=== PATIENT | female | born 1990 | race Caucasian/White ===

== ENCOUNTER 2018-01-27 15:43 | Outpatient (CLI) | payer BC ==
[~2018-01-27 15:43] MED LIST: ASPI-808 PO; CEFD300C3 PO; NAPR-1071 PO
[2018-01-27 16:22] VITALS: BP 128/86
[2018-01-27 16:50] VITALS: BP 128/80
== END 2018-01-27 16:53 | disposition home or self-care (01) ==
LOC: WSo 15:43
PROVIDERS: ATTEND Obstetrics & Gynecology
DX: Z31.82 Encounter for Rh incompatibility status (principal)
CPT/HCPCS: 96372

== ENCOUNTER → 2018-03-30 | Outpatient (CLI) | payer BC ==
[~2018-03-30] MED LIST changes: +DOCU100C37 PO; +ENOX40DI8 SC; +OXYC1TAB12 PO
== END ==
LOC: LABNPT 17:01
PROVIDERS: ATTEND Obstetrics & Gynecology
DX: O14.02 Mild to moderate pre-eclampsia, second trimester (principal)
CPT/HCPCS: 82570; 84156

== ENCOUNTER 2018-04-03 07:15 | Inpatient (IN) | payer BC | END 2018-04-06 13:00 | disposition home or self-care (01) | LOC: LDRP 07:15 ==

== ENCOUNTER 2018-04-24 10:00 | Outpatient (RCR) | payer BC | END 2018-07-23 | disposition home or self-care (01) | LOC: ONC 10:00 | PROVIDERS: ATTEND Internal Medicine Hematology & Oncology | DX: Z86.718 Personal history of other venous thrombosis and embolism (principal); Z79.01 Long term (current) use of anticoagulants | CPT/HCPCS: 99213 ==

== ENCOUNTER 2019-08-12 11:38 | Emergency (ER) | payer BC ==
[~2019-08-12] VITALS: Ht 165 cm; Wt 166.6 kg
--- NOTE | 2019-08-12 12:15 | ED General ---
General Chief Complaint: General Problems/Pain Stated Complaint: L SIDE ABD SWELLING/REDNESS Nursing Triage Note: Pt amb to rm 7 with complaint of blood clot on abd. states has hx of blood clots and takes aspirin daily Nursing Sepsis Screen: No Definite Risk Source of Information: Patient Exam Limitations: No Limitations History of Present Illness Date Seen by Provider: August 12, 2019 Time Seen by Provider: 12:11 Initial Comments To ER with a swollen slightly erythematous tender area to the anterior lateral aspect of the abdomen that started about 2 days ago. She states that it began in a small quarter-sized area and has extended inferiorly about 8 inches and has become more swollen. 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 She has a history of superficial thrombophlebitis of the lower leg as well as bilateral deep vein thrombosis, inferior vena cava filter placement she is not on anticoagulation. The initial clots were discovered following oral anticoagulation use. Timing/Duration: 1-2 Days Severity: Moderate Associated Systoms: No Chest Pain, No Shortness of Air Allergies and Home Medications Allergies Coded Allergies: No Known Drug Allergies (Verified , 11/27/08) Home Medications Apixaban 2.5 Mg Tablet, 2.5 MG PO BID Prescribed by: NALLELY ROSAS on 08/12/19 1224 Aspirin 325 Mg Tablet, 325 MG PO DAILY, (Reported) Cefdinir 300 Mg Capsule, 300 MG PO BID Prescribed by: FRAN GROSS on 01/27/16 1656 Cephalexin 500 Mg Capsule, 500 MG PO QID Prescribed by: NALLELY ROSAS on 08/12/19 1224 Docusate Sodium 100 Mg Capsule, 100 MG PO BID Prescribed by: VIPUL ESQUIVEL on 04/04/18820 Enoxaparin Sodium 40 Mg/0.4 Ml Syringe, 40 MG SC Q12HR Prescribed by: VIPUL ESQUIVEL on 04/04/18820 Oxycodone HCl/Acetaminophen 1 Each Tablet, 1 TAB PO Q4HR PRN for PAIN-MODERATE TO SEVERE Prescribed by: VIPUL ESQUIVEL on 04/04/18820 Patient Home Medication List Home Medication List Reviewed: Yes Review of Systems Review of Systems Constitutional: see HPI; No chills, No fever EENTM: see HPI Respiratory: see HPI; No cough, No short of breath Cardiovascular: no symptoms reported Genitourinary: no symptoms reported Musculoskeletal: see HPI Skin: see HPI Psychiatric/Neurological: No Symptoms Reported Hematologic/Lymphatic: No Symptoms Reported Immunological/Allergic: no symptoms reported Past Owvsuvz-Ibzvbf-Kmejka Hx Patient Social History Alcohol Use: Denies Use Recreational Drug Use: No Smoking Status: Never a Smoker Recent Foreign Travel: No Contact w/Someone Who Travel: No Recent Infectious Disease Expo: No Recent Hopitalizations: No Immunizations Up To Date Tetanus Booster (TDap): Unknown PED Vaccines UTD: Yes Date of Influenza Vaccine: Feb 16, 2018 Seasonal Allergies Seasonal Allergies: No Past Medical History Surgeries: Yes (WISDOM TEETH REMOVAL, VENA CAVA FILTER) Respiratory: No Cardiac: Yes Deep Vein Thrombosis Neurological: No Reproductive Disorders: No 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 No Pertinent Family Hx Physical Exam Vital Signs Vital Signs - First Documented 08/12/19 11:58 Pulse 88 Resp 17 B/P (MAP) 161/92 (115) Pulse Ox 97 O2 Delivery Room Air Capillary Refill : Less Than 3 Seconds Height, Weight, BMI Height: 5'5.00" Weight: 354lbs. 0.0oz. 160.660303he; 61.00 BMI Method:Stated General Appearance: No Apparent Distress, WD/WN Eyes: Bilateral Eye Normal Inspection, Bilateral Eye PERRL, Bilateral Eye EOMI Neck: Full Range of Motion, Normal Inspection Respiratory: No Accessory Muscle Use, No Respiratory Distress Gastrointestinal: Non Tender, Soft Extremity: Normal Capillary Refill, Normal Inspection Neurologic/Psychiatric: Alert, Oriented x3 Skin: Normal Color, Warm/Dry, Other (there is an area of thrombophlebitis along the lateral aspect of the abdomen that measures about 3 cm wide, the skin is erythematous, slightly indurated, about 15 cm long.) Progress/Results/Core Measures Suspected Sepsis Recent Fever Within 48 Hours: No Infection Criteria Present: None New/Unexplained Altered Menta: No Sepsis Screen: No Definite Risk SIRS Temperature: Pulse: 88 Respiratory Rate: 17 Blood Pressure 161 /92 Mean: 115 Results/Orders My Orders Orders - NALLELY ROSAS APRN Cbc With Automated Diff (08/12/19 12:08) Hs C Reactive Protein (08/12/19 12:08) Fibrin Degradation Products (08/12/19 12:08) Basic Metabolic Panel (08/12/19 12:08) Vital Signs/I&O 08/12/19 11:58 Pulse 88 Resp 17 B/P (MAP) 161/92 (115) Pulse Ox 97 O2 Delivery Room Air Capillary Refill : Less Than 3 Seconds Blood Pressure Mean: 115 Departure Communication (Admissions) She states that she was formerly on warfarin but never took it consistently as Dr. Patrick wanted her to so she just stopped it. She states she she would like to start an anticoagulant but not warfarin. I spoke with Dr. Manuel On-call for hematology and agrees with starting oral anticoagulants, she'll need to follow up with Dr. Patrick tomorrow. Because this is not deep venous thrombosis but she needs to reduce the risk of recurrent DVT or PE given her history, I will use Eliquis 2.5 mg by mouth twice a day. I did discuss with her the risk of anticoagulant use. Impression Primary Impression: Thrombophlebitis of the abdomen wall Disposition: HOME, SELF-CARE Condition: Stable Departure-Patient Inst. Decision time for Depature: 12:15 Referrals: NO,LOCAL PHYSICIAN (PCP/Family) Primary Care Physician Patient Instructions: NO INSTRUCTIONS GIVEN Add. Discharge Instructions: 1. Start oral anticoagulation as directed. Call Dr. Patrick tomorrow to make an appointment to be seen for follow-up. All discharge instructions reviewed with patient and/or family. Voiced understanding. Scripts Apixaban (Eliquis) 2.5 Mg Tablet 2.5 MG PO BID, #60 TAB Prov: NALLELY ROSAS APRN 08/12/19 Cephalexin (Keflex) 500 Mg Capsule 500 MG PO QID, #28 CAP Prov: NALLELY ROSAS APRN 08/12/19 Images Torso/Trunk 1 - Swelling, Tenderness Copy Copies To 1: JESSIE MORELOS; AMAIRANI MANUEL MD, PETER J APRN August 12, 2019 12:15
[2019-08-12] MEDS ORDERED: APIX2.5T PO (12:24)
[2019-08-12] MEDS ORDERED: CEPH-507 PO (12:24)
[2019-08-12 12:43] LABS: BASOPHILS % (AUTO) 0 % (0-10); EOSINOPHILS # (AUTO) 0.1 10^3/uL (0.0-0.3); EOSINOPHILS % (AUTO) 2 % (0-10); HEMATOCRIT 36 % (35-52); LYMPHOCYTES # (AUTO) 1.3 X 10^3 (1.0-4.0); LYMPHOCYTES % (AUTO) 18 % (12-44); MEAN CORPUSCULAR HEMOGLOBIN 30 PG (25-34); MEAN CORPUSCULAR HGB CONC 33 G/DL (32-36); MEAN CORPUSCULAR VOLUME 91 FL (80-99); MEAN PLATELET VOLUME 8.8 FL (7.4-10.4); MONOCYTES # (AUTO) 0.8 X 10^3 (0.0-1.0); MONOCYTES % (AUTO) 12 % (0-12); NEUTROPHILS # (AUTO) 4.7 X 10^3 (1.8-7.8); NEUTROPHILS % (AUTO) 67 % (42-75); PLATELET COUNT 264 10^3/uL (130-400); RED CELL DISTRIBUTION WIDTH 13.5 % (10.0-14.5); WHITE BLOOD COUNT 6.9 10^3/uL (4.3-11.0)
[2019-08-12 13:01] LABS: CHLORIDE 105 MMOL/L (98-107); POTASSIUM 4.1 MMOL/L (3.6-5.0); SODIUM 140 MMOL/L (135-145)
[2019-08-12 13:02] LABS: CALCIUM 9.1 MG/DL (8.5-10.1); GLUCOSE 111 MG/DL (70-105)
[2019-08-12 13:04] LABS: CARBON DIOXIDE 25 MMOL/L (21-32)
[2019-08-12 13:06] LABS: CREATININE SERUM 0.72 MG/DL (0.60-1.30); GFR ESTIMATED > 60
[2019-08-12 13:07] LABS: BUN/CREATININE RATIO 14
[2019-08-12] MEDS ORDERED: ENOXAPARIN 80 MG/0.8 ML (LOVENOX) SYR SC ONE (13:30)
[2019-08-12 13:46] VITALS: BP 149/86
== END 2019-08-12 13:46 | disposition home or self-care (01) ==
LOC: EDUNIT# 11:38 → ER 11:39
DX: I80.8 Phlebitis and thrombophlebitis of other sites (principal); Z79.82 Long term (current) use of aspirin; Z79.01 Long term (current) use of anticoagulants
CPT/HCPCS: 36415; 80048; 85025; 85379; 86141; 99281

== ENCOUNTER → 2019-10-02 | Outpatient (CLI) | payer BC ==
[~2019-10-02] MED LIST changes: +APIX2.5T PO; +CEPH-507 PO
[2019-10-02 14:58] LABS: BASOPHILS % (AUTO) 0 % (0-10); EOSINOPHILS # (AUTO) 0.1 10^3/uL (0.0-0.3); EOSINOPHILS % (AUTO) 2 % (0-10); HEMATOCRIT 38 % (35-52); HEMOGLOBIN 12.6 G/DL (11.5-16.0); LYMPHOCYTES # (AUTO) 1.5 X 10^3 (1.0-4.0); LYMPHOCYTES % (AUTO) 19 % (12-44); MEAN CORPUSCULAR HEMOGLOBIN 30 PG (25-34); MEAN CORPUSCULAR HGB CONC 33 G/DL (32-36); MEAN CORPUSCULAR VOLUME 92 FL (80-99); MEAN PLATELET VOLUME 9.5 FL (7.4-10.4); MONOCYTES # (AUTO) 1.1 X 10^3 (0.0-1.0); MONOCYTES % (AUTO) 14 % (0-12); NEUTROPHILS # (AUTO) 5.2 X 10^3 (1.8-7.8); NEUTROPHILS % (AUTO) 65 % (42-75); PLATELET COUNT 310 10^3/uL (130-400); RED CELL DISTRIBUTION WIDTH 14.4 % (10.0-14.5)
[2019-10-02 15:24] LABS: ALANINE AMINOTRANSFERASE 25 U/L (0-55); ALBUMIN 4.1 GM/DL (3.2-4.5); ALKALINE PHOSPHATASE 68 U/L (40-136); BILIRUBIN,TOTAL 0.3 MG/DL (0.1-1.0); BUN/CREATININE RATIO 12; CALCIUM 9.2 MG/DL (8.5-10.1); CARBON DIOXIDE 26 MMOL/L (21-32); CHLORIDE 104 MMOL/L (98-107); CREATININE SERUM 0.73 MG/DL (0.60-1.30); GFR ESTIMATED > 60; GLUCOSE 86 MG/DL (70-105); POTASSIUM 4.1 MMOL/L (3.6-5.0); SODIUM 138 MMOL/L (135-145); TOTAL PROTEIN 7.3 GM/DL (6.4-8.2)
== END ==
LOC: ONC 14:47 → EDSTATUS 15:54
PROVIDERS: ATTEND Internal Medicine Hematology & Oncology
DX: E66.01 Morbid (severe) obesity due to excess calories (principal); I82.403 Acute embolism and thrombosis of unspecified deep veins of lower extremity, bilateral
CPT/HCPCS: 80053; 85025; G0463; 99213

== ENCOUNTER → 2021-04-15 | Outpatient (CLI) | payer BC ==
--- NOTE | 2021-04-15 16:32 | Diagnostic Imaging Report ---
US OB<14 WKS SNGLE W/TRANSVAG INDICATION: Unknown dates. Positive test. COMPARISON: None available. TECHNIQUE: Transabdominal and transvaginal sonographic imaging of the pelvis was performed. FINDINGS: There is a gestational sac with a normal morphology appropriately positioned in the upper uterus. Within the gestational sac there is a normal-appearing yolk sac as well as a embryo. heart rate is detected at 160 bpm. Based on average crown-rump length of 15 cm, the estimated gestational age is 8 weeks and 0 days. Estimated gestational age by LMP is 8 weeks and 4 days, and these are considered concordant with the margin of error. An estimated due date based on today's ultrasound is 11/25/2021. No hu-gestational hemorrhage. Maternal adnexa are imaged but the ovaries are not able be visualized due to surrounding bowel gas. IMPRESSION: 1. Single live intrauterine with an averaged ultrasound age of 8 weeks and 4 days. This is concordant with dating by LMP. Dictated by: Dictated on workstation # [id number]
== END ==
LOC: RAD 14:19
PROVIDERS: ATTEND Obstetrics & Gynecology
DX: Z32.01 Encounter for pregnancy test, result positive (principal); Z3A.01 Less than 8 weeks gestation of pregnancy
CPT/HCPCS: 76801; 76817

== ENCOUNTER 2021-05-27 16:42 | Emergency (ER) | payer BC ==
[~2021-05-27] VITALS: Ht 165 cm; Wt 154.2 kg
[2021-05-27 17:58] LABS: BASOPHILS % (AUTO) 0 % (0-10); EOSINOPHILS # (AUTO) 0.1 10^3/uL (0.0-0.3); EOSINOPHILS % (AUTO) 1 % (0-10); HEMATOCRIT 39 % (35-52); HEMOGLOBIN 13.4 g/dL (11.5-16.0); LYMPHOCYTES # (AUTO) 1.8 10^3/uL (1.0-4.0); LYMPHOCYTES % (AUTO) 19 % (12-44); MEAN CORPUSCULAR HEMOGLOBIN 33 pg (25-34); MEAN CORPUSCULAR HGB CONC 35 g/dL (32-36); MEAN CORPUSCULAR VOLUME 94 fL (80-99); MEAN PLATELET VOLUME 9.6 fL (9.0-12.2); MONOCYTES # (AUTO) 0.9 10^3/uL (0.0-1.0); MONOCYTES % (AUTO) 9 % (0-12); NEUTROPHILS # (AUTO) 6.7 10^3/uL (1.8-7.8); NEUTROPHILS % (AUTO) 70 % (42-75); PLATELET COUNT 271 10^3/uL (130-400); WHITE BLOOD COUNT 9.6 10^3/uL (4.3-11.0)
[2021-05-27 18:19] VITALS: BP 146/88
[2021-05-27 18:27] LABS: CLARITY,URINE SL CLDY; COLOR,URINE RED; GLUCOSE, URINE (UA) NEGATIVE (NEGATIVE); PROTEIN,URINE 2+ (NEGATIVE)
[2021-05-27 18:28] LABS: BILIRUBIN,URINE NEGATIVE (NEGATIVE); KETONES,URINE NEGATIVE (NEGATIVE); LEUKOCYTE ESTERASE ,URINE TRACE (NEGATIVE); NITRITE,URINE NEGATIVE (NEGATIVE)
[2021-05-27 18:29] LABS: BACTERIA,URINE NEGATIVE /HPF; RBC,URINE TNTC /HPF
--- NOTE | 2021-05-27 18:52 | ED GU-Female ---
General Chief Complaint: - Reproductive Stated Complaint: 14 WKS PREG - BLEEDING Nursing Triage Note: PT PRESENTS TO ED VIA POV ACCOMPANIED BY FOR COMPLAINTS OF VAGINAL BLEEDING STARTING TODAY. PT DENIES CRAMPING. PT DUE DATE Nov. Source: patient Exam Limitations: no limitations History of Present Illness Date Seen by Provider: May 27, 2021 Time Seen by Provider: 16:47 Initial Comments This is a 30-year-old woman at approximately 14 weeks gestational age presents to the emergency room with abrupt onset of vaginal bleeding today. She stood up and had a gush of blood from the vagina. She now has a small amount of continuing blood loss. She has history of DVTs and is presently taking aspirin and Lovenox during this . Dr. Castellano is her radio sales account executive. She does not have any significant pain or cramping. She notes no intercourse or trauma that triggered the bleeding. She reports ultrasound performed most rece ntly at Dr. Castellano's office was unremarkable. She had an ultrasound performed here on April 15 showing a single live intrauterine gestation without complications. Allergies and Home Medications Allergies Coded Allergies: No Known Drug Allergies (Verified , 11/27/08) Patient Home Medication List Home Medication List Reviewed: Yes Apixaban (Eliquis) 2.5 Mg Tablet, 2.5 MG PO BID Prescribed by: NALLELY ROSAS on 08/12/19 1224 Aspirin (Aspirin) 325 Mg Tablet, 325 MG PO DAILY, (Reported) Entered as Reported by: CASPER MAZARIEGOS on 01/27/16 1549 Cefdinir (Cefdinir) 300 Mg Capsule, 300 MG PO BID Prescribed by: FRAN GROSS on 01/27/16 1656 Cephalexin (Keflex) 500 Mg Capsule, 500 MG PO QID Prescribed by: NALLELY ROSAS on 08/12/19 1224 Docusate Sodium (Docusate Sodium) 100 Mg Capsule, 100 MG PO BID Prescribed by: VIPUL ESQUIVEL on 04/04/18 08 Enoxaparin Sodium (Enoxaparin Sodium) 40 Mg/0.4 Ml Syringe, 40 MG SC Q12HR Prescribed by: VIPUL ESQUIVEL on 04/04/18 08 Oxycodone HCl/Acetaminophen (Percocet 10-325 mg Tablet) 1 Each Tablet, 1 TAB PO Q4HR PRN for PAIN-MODERATE TO SEVERE Prescribed by: VIPUL ESQUIVEL on 04/04/18 0821 Review of Systems Review of Systems Constitutional: no symptoms reported EENTM: no symptoms reported Respiratory: no symptoms reported Cardiovascular: see HPI Gastrointestinal: no symptoms reported Genitourinary: see HPI Musculoskeletal: no symptoms reported Skin: no symptoms reported Psychiatric/Neurological: No Symptoms Reported Endocrine: No Symptoms Reported Hematologic/Lymphatic: See HPI Past Jzblsvg-Apbpgd-Oonibg Hx Patient Social History Tobacco Use?: No Substance use?: No Alcohol Use?: No Pt feels they are or have been: No Immunizations Up To Date Tetanus Booster (TDap): Unknown PED Vaccines UTD: Yes First/Initial COVID19 Vaccinat: YES Second COVID19 Vaccination Timo: YES COVID19 Vaccine Rod Hanger: MODERNA Seasonal Allergies Seasonal Allergies: No Past Medical History Surgery/Hospitalization HX: BLOOD CLOT DISORDER- VENA CAVA FILTER. 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 No Pertinent Family Hx Physical Exam Vital Signs Vital Signs - First Documented 05/27/21 05/27/21 17:04 19:00 Temp 35.9 Pulse 103 Resp 18 B/P (MAP) 146/88 (107) Pulse Ox 99 O2 Delivery Room Air Capillary Refill : Less Than 3 Seconds Height, Weight, BMI Height: 5'5.00" Weight: 354lbs. 0.0oz. 160.294202go; 56.00 BMI Method:Stated General Appearance: WD/WN, no apparent distress, obese HEENT: normal ENT inspection Neck: normal inspection Cardiovascular: regular rate, rhythm, no edema, no murmur Respiratory: lungs clear, normal breath sounds, no respiratory distress Gastrointestinal: normal bowel sounds, non tender, soft, other ( heart tones in the 140s by Doppler) Extremities: normal inspection, no pedal edema Neurologic/Psychiatric: no motor/sensory deficits, alert, normal mood/affect, oriented x 3 Skin: normal color, warm/dry Progress/Results/Core Measures Suspected Sepsis SIRS Temperature: Pulse: 89 Respiratory Rate: 18 Laboratory Tests 05/27/21 16:54: White Blood Count 9.6 Blood Pressure 146 /88 Mean: 107 Laboratory Tests 05/27/21 16:54: Platelet Count 271 Results/Orders Lab Results Laboratory Tests Test 05/27/21 16:54 05/27/21 18:05 Range/Units White Blood Count 9.6 4.3-11.0 10^3/uL Red Blood Count 4.09 3.80-5.11 10^6/uL Hemoglobin 13.4 11.5-16.0 g/dL Hematocrit 39 35-52 % Mean Corpuscular Volume 94 80-99 fL Mean Corpuscular Hemoglobin 33 25-34 pg Mean Corpuscular Hemoglobin Concent 35 32-36 g/dL Red Cell Distribution Width 12.6 10.0-14.5 % Platelet Count 271 130-400 10^3/uL Mean Platelet Volume 9.6 9.0-12.2 fL Immature Granulocyte % (Auto) 1 % Neutrophils (%) (Auto) 70 42-75 % Lymphocytes (%) (Auto) 19 12-44 % Monocytes (%) (Auto) 9 0-12 % Eosinophils (%) (Auto) 1 0-10 % Basophils (%) (Auto) 0 0-10 % Neutrophils # (Auto) 6.7 1.8-7.8 10^3/uL Lymphocytes # (Auto) 1.8 1.0-4.0 10^3/uL Monocytes # (Auto) 0.9 0.0-1.0 10^3/uL Eosinophils # (Auto) 0.1 0.0-0.3 10^3/uL Basophils # (Auto) 0.0 0.0-0.1 10^3/uL Immature Granulocyte # (Auto) 0.1 0.0-0.1 10^3/uL Urine Color RED H Urine Clarity SL CLDY Urine pH 5.0 5-9 Urine Specific Corn 1.010 L 1.016-1.022 Urine Protein 2+ H NEGATIVE Urine Glucose (UA) NEGATIVE NEGATIVE Urine Ketones NEGATIVE NEGATIVE Urine Nitrite NEGATIVE NEGATIVE Urine Bilirubin NEGATIVE NEGATIVE Urine Urobilinogen 0.2 < = 1.0 MG/DL Urine Leukocyte Esterase TRACE H NEGATIVE Urine RBC (Auto) 3+ H NEGATIVE Urine RBC TNTC H /HPF Urine WBC 5-10 H /HPF Urine Squamous Epithelial Cells NONE /HPF Urine Renal Epithelial Cells NONE /HPF Urine Crystals NONE /LPF Urine Bacteria NEGATIVE /HPF Urine Casts NONE /LPF Urine Mucus NEGATIVE /LPF Urine Culture Indicated NO My Orders Orders - RADHA MONTES MD Rh Immune Globulin Rhophylac (05/27/21 16:48) Rhogam Administration (05/27/21 16:48) Ua Culture If Indicated (05/27/21 16:49) Cbc With Automated Diff (05/27/21 17:32) Vital Signs/I&O Capillary Refill : Less Than 3 Seconds Blood Pressure Mean: 107 Progress Note : Progress Note CBC was normal. Urine appeared contaminated by vaginal blood. Patient has Rh- blood type and RhoGam was administered. Case was discussed with Dr. Castellano who recommended that she continue both aspirin and Lovenox due to her high risk of an DVT. Return precautions were reviewed. See discharge instructions for further discussion. Departure Impression Primary Impression: Vaginal bleeding during Additional Impressions: Anticoagulated Rh negative status during Qualified Codes: O26.891 - Other specified related conditions, first trimester; Z67.91 - Unspecified blood type, rh negative History of DVT (deep vein thrombosis) Disposition: 01 HOME, SELF-CARE Condition: Stable Departure-Patient Inst. Decision time for Depature: 18:49 Referrals: NO,LOCAL PHYSICIAN (PCP) Primary Care Physician ABBIE DWYER (Family) Primary Care Physician Patient Instructions: Bleeding In Early Add. Discharge Instructions: Contact Dr. Castellano's office tomorrow morning for further instructions. Until then continue your medications as previously directed. Observe vaginal rest, meaning no intercourse or anything else vaginally until cleared by Dr. Castellano. Avoid strenuous activities until cleared. Call with questions or concerns. They are excited return if you have worsening symptoms that include profuse vaginal hemorrhaging such as soaking numerous pads in an hour, lightheadedness, shortness of breath, notable weakness, fever, etc. All discharge instructions reviewed with patient and/or family. Voiced understomero villegas. Copy Copies To 1: VIPUL CASTELLANO MD, JOSHUA T MD May 27, 2021 18:52
[2021-05-27 19:00] VITALS: BP 126/97
== END 2021-05-27 19:00 | disposition home or self-care (01) ==
LOC: EDUNIT# 16:42 → ER 16:44
DX: O46.92 Antepartum hemorrhage, unspecified, second trimester (principal); Z67.91 Unspecified blood type, Rh negative; E66.01 Morbid (severe) obesity due to excess calories; Z3A.14 14 weeks gestation of pregnancy; Z86.718 Personal history of other venous thrombosis and embolism; Z79.01 Long term (current) use of anticoagulants
CPT/HCPCS: 36415; 81000; 85025

== ENCOUNTER → 2021-10-13 | Outpatient (CLI) | payer BC | LOC: LABNPT 14:52 | PROVIDERS: ATTEND Obstetrics & Gynecology | DX: R80.9 Proteinuria, unspecified (principal) | CPT/HCPCS: 82570; 84156 ==

== ENCOUNTER 2021-10-28 05:51 | Outpatient (CLI) | payer BC ==
[~2021-10-28] VITALS: Ht 165.1 cm; Wt 160.0 kg
[2021-10-29] MEDS ORDERED: ASPI-479 PO (14:16)
[2021-10-29] MEDS ORDERED: PNV1TABL9 PO (14:16)
[2021-10-29] MEDS ORDERED: FERR240T15 PO (14:16)
== END 2021-10-29 14:20 ==
LOC: PREOP 05:51
PROVIDERS: ATTEND Obstetrics & Gynecology
DX: Z01.818 Encounter for other preprocedural examination (principal)

== ENCOUNTER 2021-11-06 07:00 | Inpatient (IN) | payer BC ==
[2021-11-06] VITALS (10 sets, daily range): BP systolic 91–137; BP diastolic 53–82
[~2021-11-06] VITALS: Ht 165 cm; Wt 159.0 kg
[~2021-11-06 07:00] MED LIST changes: +ASPI-479 PO; +FERR240T15 PO; +PNV1TABL9 PO
[2021-11-06] MEDS ORDERED: LACTATED RINGERS 1,000 ML IV PRN (07:45)
[2021-11-06] MEDS ORDERED: METOCLOPRAMIDE INJ 10 MG/2 ML (REGLAN) IV ONE (07:45)
[2021-11-06] MEDS ORDERED: CITRIC ACID/SOB CIT (BICITRA) 30 ML UDC PO ONE (07:45)
[2021-11-06] MEDS ORDERED: ceFAZolin INJECTION 2,000 MG in NS (IVPB) 50 ML IV ONE (07:45)
[2021-11-06] MEDS ORDERED: CATHETER FLUSH 10 ML SYR IV PRN (07:45)
[2021-11-06] MEDS ORDERED: ceFAZolin 2 GM/50 ML (PRE-MIXED) IV ONE (08:00)
[2021-11-06] MEDS ORDERED: metroNIDAZOLE 500MG/100ML IVPB 100 ML IV ONE (08:00)
[2021-11-06] MEDS ORDERED: FAMOTIDINE 20MG/2ML IV (PEPCID) IVP ONE (08:15)
[2021-11-06 08:19] LABS: BASOPHILS % (AUTO) 1 % (0-10); EOSINOPHILS # (AUTO) 0.1 10^3/uL (0.0-0.3); EOSINOPHILS % (AUTO) 1 % (0-10); HEMATOCRIT 33 % (35-52); HEMOGLOBIN 11.3 g/dL (11.5-16.0); LYMPHOCYTES # (AUTO) 1.3 10^3/uL (1.0-4.0); LYMPHOCYTES % (AUTO) 16 % (12-44); MEAN CORPUSCULAR HEMOGLOBIN 33 pg (25-34); MEAN CORPUSCULAR HGB CONC 35 g/dL (32-36); MEAN CORPUSCULAR VOLUME 96 fL (80-99); MEAN PLATELET VOLUME 9.6 fL (9.0-12.2); MONOCYTES # (AUTO) 0.9 10^3/uL (0.0-1.0); MONOCYTES % (AUTO) 11 % (0-12); NEUTROPHILS # (AUTO) 5.9 10^3/uL (1.8-7.8); NEUTROPHILS % (AUTO) 71 % (42-75); PLATELET COUNT 238 10^3/uL (130-400); WHITE BLOOD COUNT 8.3 10^3/uL (4.3-11.0)
[2021-11-06] MEDS ORDERED: METOCLOPRAMIDE INJ 10 MG/2 ML (REGLAN) ONE (08:22)
[2021-11-06] MEDS ORDERED: ceFAZolin 2 GM IV Premixed 50 ML ONE (08:26)
[2021-11-06] MEDS: LACTATED RINGERS 1,000 ML IV PRN ×2 (08:30→09:13)
--- NOTE | 2021-11-06 08:33 | History & Physical ---
History and Physical Date Seen by Provider: Nov 06, 2021 Time Seen by Provider: 08:28 This patient is a 31-year-old 2 para 1 1 female who presents for repeat delivery at 37 weeks gestation. Her history is significant for PIH as well as morbid obesity as well as a history of DVT on chronic Anticoagulation with Lovenox 40 mg twice a day. Patient has had issues with low amniotic fluid she has seen the railcar mechanic doctor and Giovana Meraz.Patient has had weekly biophysical profiles that have been reassuring. Patient's group B strep culture was Positive. Patient denies rupture membranes or bleeding she denies contractions. She does feel baby moving frequently. Allergies are none Medications are vitamins and Lovenox Medical social and surgical histories are per the antepartum record HEENT exam is normal Neck is supple no lymphadenopathy no thyromegaly Abdomen is markedly morbidly obese gravid nontender Extremities show no clubbing or cyanosis. There is no Homans' sign. Pelvic exam is deferred Laboratory Tests Test 11/06/21 08:09 Range/Units White Blood Count 8.3 4.3-11.0 10^3/uL Red Blood Count 3.42 L 3.80-5.11 10^6/uL Hemoglobin 11.3 L 11.5-16.0 g/dL Hematocrit 33 L 35-52 % Mean Corpuscular Volume 96 80-99 fL Mean Corpuscular Hemoglobin 33 25-34 pg Mean Corpuscular Hemoglobin Concent 35 32-36 g/dL Red Cell Distribution Width 12.9 10.0-14.5 % Platelet Count 238 130-400 10^3/uL Mean Platelet Volume 9.6 9.0-12.2 fL Immature Granulocyte % (Auto) 2 % Neutrophils (%) (Auto) 71 42-75 % Lymphocytes (%) (Auto) 16 12-44 % Monocytes (%) (Auto) 11 0-12 % Eosinophils (%) (Auto) 1 0-10 % Basophils (%) (Auto) 1 0-10 % Neutrophils # (Auto) 5.9 1.8-7.8 10^3/uL Lymphocytes # (Auto) 1.3 1.0-4.0 10^3/uL Monocytes # (Auto) 0.9 0.0-1.0 10^3/uL Eosinophils # (Auto) 0.1 0.0-0.3 10^3/uL Basophils # (Auto) 0.0 0.0-0.1 10^3/uL Immature Granulocyte # (Auto) 0.1 0.0-0.1 10^3/uL Patient CBC is normal monitor shows normal heart rate pattern with no contractions Assessment and plan 37+ weeks Gestation with previous history of DVT morbid obesity and oligohydramnios. Patient also has PIH and is admitted now for repeat delivery. 37 weeks with previous Allergies and Home Medications Allergies Coded Allergies: No Known Drug Allergies (Verified , 11/27/08) Patient Home Medication List Home Medication List Reviewed: Yes Aspirin (Adult Low Dose Aspirin EC) 81 Mg Tablet.dr, 81 MG PO DAILY, (Reported) Entered as Reported by: CAROL ANN GRAMAJO on 10/29/211415 Last Action: Last Taken Edited Ferrous Gluconate (Iron) 240 Mg (27 Mg Iron) Tablet, 240 MG PO DAILY, (Reported) Entered as Reported by: CAROL ANN GRAMAJO on 10/29/211415 Last Action: Last Taken Edited Pnv Cmb#21/Iron/Folic Acid ( Complete Caplet) 14 Mg Iron-400 Mcg Tablet, 1 EACH PO DAILY, (Reported) Entered as Reported by: CAROL ANN GRAMAJO on 10/29/211415 Last Action: Last Taken Edited VIPUL PICHARDO MD Nov 06, 2021 08:33
--- NOTE | 2021-11-06 08:35 | Discharge Inst-Surgical ---
Discharge Inst-Surgical Depart Medication/Instructions New, Converted or Re-Newed RX: Transmitted to Pharmacy Consults/Follow Up Patient Instructions: As directed Orders & Referrals Follow Up Appt: RTC 1 week for incision check. Call to make follow up appt. for patient in 4 weeks. Wound Care: Remove anais, apply benzoin and steri strips. Activity Per routine post instructions. Prescriptions for Percocet Motrin and Colace have been transmitted to patient's pharmacy from my office Patient is to resume her Lovenox on postoperative day 2 And continue for 4 to 6 weeks after delivery Diet as tolerated Patient may shower or tub bathe as desired. Continue home meds Activity Activity as Tolerated: No Diet Discharge Diet: No Restrictions VIPUL PICHARDO MD Nov 06, 2021 08:35
[2021-11-06] MEDS ORDERED: fentaNYL INJ 100 MCG/2 ML AMP ONE (09:12)
[2021-11-06] MEDS ORDERED: ENOX40DI13 SQ (09:45)
[2021-11-06] MEDS ORDERED: ONDANSETRON 4 MG/2 ML (SDV) Z0FRAN ONE (09:56)
[2021-11-06] MEDS ORDERED: PHENYLEPHRINE 100 MCG/ML 10 ML (ANESTHESIA) SYR ONE (09:56)
[2021-11-06] MEDS ORDERED: OXYTOCIN PRE-MIX DRIP 500 ML IV ONE (10:16)
[2021-11-06] MEDS ORDERED: fentaNYL INJ 100 MCG/2 ML AMP IVP PRN (11:00)
[2021-11-06] MEDS ORDERED: ONDANSETRON 4 MG/2 ML (SDV) Z0FRAN IVP PRN (11:00)
[2021-11-06] MEDS ORDERED: TETANUS,DIPTH,PERTUSS P/F (BOOSTRIX) 0.5 ML VIAL IM ONE (11:00)
[2021-11-06] MEDS ORDERED: D5 LR IV SOLUTION 1,000 ML IV SCH (11:00)
[2021-11-06] MEDS: OXYTOCIN PRE-MIX DRIP 500 ML IV SCH ×2 (11:07→15:35)
[2021-11-06] MEDS: KETOROLAC 30 MG/ML VIAL IVP SCH ×2 (12:19→17:54)
[2021-11-06] MEDS: oxyCODONE/APAP 10/325MG (PERCOCET 10) TABLET PO PRN ×2 (13:58→19:43)
--- NOTE | 2021-11-06 15:44 | OPERATIVE REPORT ---
DATE OF SERVICE: 11/06/2021 PREOPERATIVE DIAGNOSES: A 37-week plus with PIH, previous , morbid obesity, and a history of DVT, on chronic anticoagulation. POSTOPERATIVE DIAGNOSES: A 37-week plus with PIH, previous , morbid obesity, and a history of DVT, on chronic anticoagulation. OPERATIVE PROCEDURE: Repeat low transverse delivery of a viable female infant with Apgars of 8 and 8 at 1 and 5 minutes respectively, weight of 7 pounds 2 ounces, time of 09:53 and a cord blood pH of 7.30. OPERATIVE DESCRIPTION: With the patient in a supine position under satisfactory spinal analgesia, she was prepped and draped in the usual fashion for abdominal surgery. Peterson catheter was placed in the urinary bladder and left to dependent drainage. The patient had a large panniculus. This was supported to expansions at the top of the bed by placing towel clips in the right and left upper portion of the lower quadrants after prepping. This exposed the mons and the previous Pfannenstiel incision nicely. A repeat Pfannenstiel incision was made with a scalpel in the usual manner. Bladder retractor was placed into position after the abdomen was entered in the usual manner. Clean scalpel was used to make a 4 cm hysterotomy incision transversely across the lower uterine segment that was extended by blunt dissection as well. Copious clear fluid was released on amniotomy. Lin forceps were applied to facilitate the delivery of a vigorous viable female infant with Apgars and stats as noted above. The infant was bulb suctioned on delivery. The umbilical cord was doubly clamped and cut and the infant passed to the pediatric nurse in attendance for delivery. Cord bloods were obtained. The placenta delivered manually as I did not want to release spontaneously. The placenta was sent to pathology for permanent section. The uterus was exteriorized, the interior wiped clean with a wet laparotomy sponge. Uterine incision was then closed with a running locked suture of 2-0 Vicryl. Hemostasis was complete. The uterus was returned to the abdominal cavity. All blood clot and debris removed from the abdominal cavity. Sponge and needle count was correct and hemostasis assured. The anterior parietal peritoneum was closed with a running suture of 2-0 Vicryl. The rectus muscles were closed with that suture as well. The rectus fascia was closed with 2-0 Vicryl, subcutaneous tissue was closed with 2-0 Vicryl, and the skin was stapled. Sponge and needle counts were correct on completion of the procedure. Blood loss was around 400 mL. The patient tolerated the procedure well and was transferred to the recovery room in a stable condition. The had been taken stable to the full term nursery under the care of the pediatric nurse. Job ID: [id number] DocumentID: [id number] Dictated Date: 11/06/2021 10:39:20 Partition Notcher Date: 11/06/2021 15:43:08 Dictated By: VIPUL PICHARDO MD
[2021-11-06] MEDS: DOCUSATE SODIUM 100 MG (COLACE) CAP PO SCH (19:43)
[2021-11-06] MEDS: D5 LR IV SOLUTION 1,000 ML IV SCH (20:13)
[2021-11-06] MEDS ORDERED: DOCUSATE SODIUM 100 MG (COLACE) CAP PO SCH (21:00)
[2021-11-07] VITALS: BP 115/63
[2021-11-07] MEDS: D5 LR IV SOLUTION 1,000 ML IV SCH (01:07)
[2021-11-07] MEDS: oxyCODONE/APAP 10/325MG (PERCOCET 10) TABLET PO PRN ×5 (01:54→22:43)
[2021-11-07 04:00] VITALS: BP 131/66
[2021-11-07] MEDS: KETOROLAC 30 MG/ML VIAL IVP SCH ×2 (06:08)
[2021-11-07 08:30] VITALS: BP 118/65
[2021-11-07] MEDS: DOCUSATE SODIUM 100 MG (COLACE) CAP PO SCH ×2 (08:39→20:39)
--- NOTE | 2021-11-07 09:08 | Progress Note ---
Standard Progress Note Progress Notes/Assess & Plan Date Seen by a Provider: Nov 07, 2021 Time Seen by a Provider: 09:06 Progress/Assessment & Plan This patient is without complaint. She is ambulating, voiding, tolerating oral intake well and has good pain control. Patient is aware of the increased risk to her for DVT she is wearing JULES hose and ambulating frequently Vital Signs Date Time Temp Pulse Resp B/P (MAP) Pulse Ox O2 Delivery O2 Flow Rate FiO2 11/07/21 04:00 36.5 63 18 131/66 (87) 99 Room Air 11/07/21 00:00 36.4 54 18 115/63 (80) 97 Room Air 11/06/21 20:59 36.3 58 18 116/56 (76) 98 Room Air 11/06/21 18:04 36.0 56 18 137/66 (89) 98 Room Air 11/06/21 12:15 36.2 71 18 130/79 (96) Room Air 11/06/21 11:40 36.1 79 18 131/66 (87) 98 Room Air 11/06/21 11:00 Room Air 11/06/21 11:00 36.3 18 105/53 (70) 96 Room Air 11/06/21 10:45 Room Air 11/06/21 10:45 36.3 18 91/69 (76) 9 Room Air 11/06/21 10:30 36.5 18 100/68 (79) 99 Room Air 11/06/21 10:30 Room Air 11/06/21 10:30 Room Air 11/06/21 10:20 36.3 18 105/60 (75) 99 Room Air 11/06/21 10:20 Room Air I & O 11/07/21 07:00 Intake Total 2850 ml Output Total 2850 ml Balance 0 ml Vital signs are stable. Patient is afebrile. The abdomen is benign Extremities show no clubbing or cyanosis. Pelvic exam is deferred Assessment and plan Postoperative day #1 status post repeat delivery doing well. Patient is at increased risk for DVT based on her history her obesityAnd the repeat surgery. She is wearing JULES hose and she had been on Lovenox we would resume that on postoperative day 2 or 3 Patient will continue to ambulate and otherwise have routine convalescent care with likely discharge home tomorrow Final Diagnosis Repeat delivery VIPUL PICHARDO MD Nov 07, 2021 09:08
[2021-11-07] MEDS: IBUPROFEN 800 MG (MOTRIN) TAB PO SCH ×2 (12:43→19:05)
--- NOTE | 2021-11-07 13:36 | Anesthesia-Regional Post-Op ---
Regional Patient Condition Mental Status: Alert, Oriented x3 Circulation: Same as Pre-Op Headache: Absent Sensation: Full Recovery Motor Block: Absent Post Op Complications Complications None Follow Up Care/Instructions Patient Instructions None needed. Anesthesia/Patient Condition Patient is doing well, no complaints, stable vital signs, no apparent adverse anesthesia problems. No complications reported per nursing. AMI HAIDER CRNA Nov 07, 2021 13:36
[2021-11-07 16:25] VITALS: BP 126/63
[2021-11-07 21:00] VITALS: BP 122/59
[2021-11-08 00:30] VITALS: BP_SYST 115; BP_SYST 122; BP_DIAS 59; BP_DIAS 67
[2021-11-08] MEDS: IBUPROFEN 800 MG (MOTRIN) TAB PO SCH ×5 (00:32→23:59)
[2021-11-08] MEDS: D5 LR IV SOLUTION 1,000 ML IV SCH (01:32)
[2021-11-08] MEDS: oxyCODONE/APAP 10/325MG (PERCOCET 10) TABLET PO PRN ×3 (04:48→19:09)
[2021-11-08 06:12] VITALS: BP 129/68
[2021-11-08 09:05] VITALS: BP 123/66
--- NOTE | 2021-11-08 09:15 | Progress Note ---
Standard Progress Note Progress Notes/Assess & Plan Date Seen by a Provider: Nov 08, 2021 Time Seen by a Provider: 09:13 Progress/Assessment & Plan This patient is without complaint. She is ambulating, voiding, tolerating oral intake well and has good pain control. Patient is aware of the increased risk to her for DVT she is wearing JULES hose and ambulating frequently Vital Signs Date Time Temp Pulse Resp B/P (MAP) Pulse Ox O2 Delivery O2 Flow Rate FiO2 11/07/21 04:00 36.5 63 18 131/66 (87) 99 Room Air 11/07/21 00:00 36.4 54 18 115/63 (80) 97 Room Air 11/06/21 20:59 36.3 58 18 116/56 (76) 98 Room Air 11/06/21 18:04 36.0 56 18 137/66 (89) 98 Room Air 11/06/21 12:15 36.2 71 18 130/79 (96) Room Air 11/06/21 11:40 36.1 79 18 131/66 (87) 98 Room Air 11/06/21 11:00 Room Air 11/06/21 11:00 36.3 18 105/53 (70) 96 Room Air 11/06/21 10:45 Room Air 11/06/21 10:45 36.3 18 91/69 (76) 9 Room Air 11/06/21 10:30 36.5 18 100/68 (79) 99 Room Air 11/06/21 10:30 Room Air 11/06/21 10:30 Room Air 11/06/21 10:20 36.3 18 105/60 (75) 99 Room Air 11/06/21 10:20 Room Air I & O 11/07/21 07:00 Intake Total 2850 ml Output Total 2850 ml Balance 0 ml Vital signs are stable. Patient is afebrile. The abdomen is benign Extremities show no clubbing or cyanosis. Pelvic exam is deferred Assessment and plan Postoperative day #1 status post repeat delivery doing well. Patient is at increased risk for DVT based on her history her obesityAnd the repeat surgery. She is wearing JULES hose and she had been on Lovenox we would resume that on postoperative day 2 or 3 Patient will continue to ambulate and otherwise have routine convalescent care with likely discharge home tomorrow November 08, 2021 Patient is without complaint except for signs symptoms and indications that she is developed a spinal headache. She is comfortable when supine however when she sits up she has immediate severe headache running down the back of her head and down her neck. That resolves when she returns to supine Patient otherwise is ambulating, voiding, tolerating oral intake well and has good pain control. Vital Signs Date Time Temp Pulse Resp B/P (MAP) Pulse Ox O2 Delivery O2 Flow Rate FiO2 11/08/21 06:12 36.1 79 18 129/68 (88) 97 Room Air 11/08/21 00:30 36.3 68 18 115/67 (83) 97 Room Air 11/07/21 21:00 36.3 70 18 122/59 (80) 97 Room Air 11/07/21 16:25 36.2 78 16 126/63 (84) 97 Room Air Vital signs are stable. Patient is afebrile. The abdomen is benign The surgical incision is clean dry and intact Extremities show no clubbing or cyanosis. There is no Homans' sign. Assessment and plan Postoperative day #2 status post repeat delivery doing well. Patient will resume her Lovenox tomorrowUntil then she will be ambulatory and continue with her SCDs.We can consider discharge home today if patient's headache resolves and if baby is ready for discharge otherwise we will maintain inpatient until tomorrow and reevaluate Final Diagnosis Repeat delivery at 37 weeks gestation VIPUL PICHARDO MD Nov 08, 2021 09:15
[2021-11-08 12:10] VITALS: BP 113/55
[2021-11-08] MEDS: DOCUSATE SODIUM 100 MG (COLACE) CAP PO SCH ×2 (12:10→19:09)
[2021-11-08 17:50] VITALS: BP 112/67
[2021-11-09] VITALS: BP 127/59
[2021-11-09] MEDS: oxyCODONE/APAP 10/325MG (PERCOCET 10) TABLET PO PRN ×3 (01:22→13:20)
[2021-11-09 06:59] VITALS: BP 126/76
[2021-11-09] MEDS: IBUPROFEN 800 MG (MOTRIN) TAB PO SCH ×2 (07:05→13:16)
--- NOTE | 2021-11-09 08:07 | Progress Note ---
Standard Progress Note Progress Notes/Assess & Plan Date Seen by a Provider: Nov 09, 2021 Time Seen by a Provider: 08:07 Progress/Assessment & Plan This patient is without complaint. She is ambulating, voiding, tolerating oral intake well and has good pain control. Patient is aware of the increased risk to her for DVT she is wearing JULES hose and ambulating frequently Vital Signs Date Time Temp Pulse Resp B/P (MAP) Pulse Ox O2 Delivery O2 Flow Rate FiO2 11/07/21 04:00 36.5 63 18 131/66 (87) 99 Room Air 11/07/21 00:00 36.4 54 18 115/63 (80) 97 Room Air 11/06/21 20:59 36.3 58 18 116/56 (76) 98 Room Air 11/06/21 18:04 36.0 56 18 137/66 (89) 98 Room Air 11/06/21 12:15 36.2 71 18 130/79 (96) Room Air 11/06/21 11:40 36.1 79 18 131/66 (87) 98 Room Air 11/06/21 11:00 Room Air 11/06/21 11:00 36.3 18 105/53 (70) 96 Room Air 11/06/21 10:45 Room Air 11/06/21 10:45 36.3 18 91/69 (76) 9 Room Air 11/06/21 10:30 36.5 18 100/68 (79) 99 Room Air 11/06/21 10:30 Room Air 11/06/21 10:30 Room Air 11/06/21 10:20 36.3 18 105/60 (75) 99 Room Air 11/06/21 10:20 Room Air I & O 11/07/21 07:00 Intake Total 2850 ml Output Total 2850 ml Balance 0 ml Vital signs are stable. Patient is afebrile. The abdomen is benign Extremities show no clubbing or cyanosis. Pelvic exam is deferred Assessment and plan Postoperative day #1 status post repeat delivery doing well. Patient is at increased risk for DVT based on her history her obesityAnd the repeat surgery. She is wearing JULES hose and she had been on Lovenox we would resume that on postoperative day 2 or 3 Patient will continue to ambulate and otherwise have routine convalescent care with likely discharge home tomorrow November 08, 2021 Patient is without complaint except for signs symptoms and indications that she is developed a spinal headache. She is comfortable when supine however when she sits up she has immediate severe headache running down the back of her head and down her neck. That resolves when she returns to supine Patient otherwise is ambulating, voiding, tolerating oral intake well and has good pain control. Vital Signs Date Time Temp Pulse Resp B/P (MAP) Pulse Ox O2 Delivery O2 Flow Rate FiO2 11/08/21 06:12 36.1 79 18 129/68 (88) 97 Room Air 11/08/21 00:30 36.3 68 18 115/67 (83) 97 Room Air 11/07/21 21:00 36.3 70 18 122/59 (80) 97 Room Air 11/07/21 16:25 36.2 78 16 126/63 (84) 97 Room Air Vital signs are stable. Patient is afebrile. The abdomen is benign The surgical incision is clean dry and intact Extremities show no clubbing or cyanosis. There is no Homans' sign. Assessment and plan Postoperative day #2 status post repeat delivery doing well. Patient will resume her Lovenox tomorrowUntil then she will be ambulatory and continue with her SCDs.We can consider discharge home today if patient's headache resolves and if baby is ready for discharge otherwise we will maintain inpatient until tomorrow and reevaluate November 09, 2021 See discharge summary VIPUL PICHARDO MD Nov 09, 2021 08:07
--- NOTE | 2021-11-09 08:10 | Discharge Summary ---
Discharge Summary 37-week repeat delivery This patient is a 30-year-old 2 para 1 at the time of admission female. Her is complicated by PIH/morbid obesity/history of DVT/oligohydramnios. Patient was admitted at 37+ weeks gestation for repeat delivery. She was on chronic Lovenox and had discontinued her blood Lovenox the day before admission. Her GBS culture was positive. She denied rupture membranes or bleeding. Patient was admitted on November 06, 2021 and taken to the operating room for repeat delivery that was performed without event. The patient recovered uneventfully. On November 07, 2021 patient was ambulating, voiding, tolerating oral intake well and had good pain control. She was stable through the day and had routine convalescent care. On November 08 patient was unchanged Now on November 09, 2021 patient is postoperative day #3. Plan is for discharge home she is ambulating, voiding, tolerating oral intake well and has good pain control. She is resuming her Lovenox 40 mg subcu twice a day on this date. Principal diagnosis this hospitalization repeat delivery at 37 weeks gestation Secondary diagnoses are history of DVT, morbid obesity, PIH, previous delivery Operation procedures include spinal analgesia and repeat delivery Patient was given appropriate discharge instructions verbally and in writing catheters were placed in the chart. Discharge medications are Percocet Motrin and Colace that have been transmitted directly to her pharmacy from clinic. VIPUL PICHARDO MD Nov 09, 2021 08:10
[2021-11-09 09:38] VITALS: BP 130/62
[2021-11-09] MEDS: DOCUSATE SODIUM 100 MG (COLACE) CAP PO SCH (13:19)
[2021-11-09 17:30] VITALS: BP 125/69
== END 2021-11-09 17:50 | disposition home or self-care (01) | DRG 787 ==
LOC: LDRP 07:00
PROVIDERS: ADMIT Obstetrics & Gynecology; ATTEND Obstetrics & Gynecology
PROC: 10D00Z1 Extraction of Products of Conception, Low, Open Approach (ICD-10-PCS; principal; 2021-11-06 09:13)
DX: O34.211 Maternal care for low transverse scar from previous cesarean delivery (principal); O41.03X0 Oligohydramnios, third trimester, not applicable or unspecified; Z3A.37 37 weeks gestation of pregnancy; Z37.0 Single live birth; O13.4 Gestational [pregnancy-induced] hypertension without significant proteinuria, complicating childbirth; O99.214 Obesity complicating childbirth; E66.01 Morbid (severe) obesity due to excess calories; O99.824 Streptococcus B carrier state complicating childbirth; Z86.718 Personal history of other venous thrombosis and embolism; Z79.82 Long term (current) use of aspirin; O89.4 Spinal and epidural anesthesia-induced headache during the puerperium; Z20.822 Contact with and (suspected) exposure to COVID-19
CPT/HCPCS: 36415; 85025; 86850; 86900; 86901; 87081; 87636; 94664

== ENCOUNTER → 2022-02-05 | Outpatient (CLI) | payer BC ==
[~2022-02-05] MED LIST changes: +ENOX40DI13 SQ
--- NOTE | 2022-02-05 12:02 | Diagnostic Imaging Report ---
PROCEDURE: US left lower extremity venous. TECHNIQUE: Multiple real-time grayscale images were obtained over the left lower extremity in various projections. Additional duplex Doppler and color Doppler images were also obtained. INDICATION: Left leg edema and redness. FINDINGS: There is no evidence of left lower extremity DVT. The deep venous system shows normal compressibility with normal response to augmentation and Valsalva. There does appear to be thrombus within the greater saphenous vein in the [id number] aspect, consistent with superficial thrombophlebitis. No fluid collections are seen. IMPRESSION: 1. No evidence of left lower extremity DVT. 2. Superficial thrombophlebitis involving the greater saphenous vein. Dictated by: Dictated on workstation # [id number]
== END ==
LOC: RAD 10:49
DX: I80.9 Phlebitis and thrombophlebitis of unspecified site (principal)